=== PATIENT | female | born 1960 | race Caucasian/White ===

== ENCOUNTER → 2016-08-29 | Outpatient (CLI) | payer BC ==
[~2016-08-29] MED LIST: AMLO-110 PO; ASPEC81 PO; ATOR10TA82 PO; TRIA1SPR2 NAE
== END | disposition home or self-care (01) ==
LOC: C.PAPS 12:04
PROVIDERS: ATTEND Obstetrics & Gynecology
DX: Z01.419 Encounter for gynecological examination (general) (routine) without abnormal findings (principal); Z11.51 Encounter for screening for human papillomavirus (HPV)

== ENCOUNTER → 2016-12-12 | Outpatient (CLI) | payer BC ==
[~2016-12-12] MED LIST changes: -ATOR10TA82 PO; +ATOR10TA88 PO
--- NOTE | 2016-12-15 08:01 | MAMMOGRAPHY REPORT ---
BILATERAL DIGITAL SCREENING MAMMOGRAM TOMOSYNTHESIS WITH CAD: 12/12/2016 CLINICAL HISTORY: Routine screening. Patient has no complaints. TECHNIQUE: Breast tomosynthesis in addition to standard 2D mammography was performed. Current study was also evaluated with a Computer Aided Detection (CAD) system. COMPARISON: Comparison is made to exams dated: 10/19/2015 mammogram, 10/17/2014 mammogram, 09/23/2013 m ammogram, 09/22/2012 mammogram, 09/22/2011 mammogram, and 09/19/2010 mammogram - [facility] enter. BREAST COMPOSITION: The tissue of both breasts is heterogeneously dense, which may obscure small mas ses. FINDINGS: There are possible increasing grouped calcifications in the left lateral breast at approxi mately 3:00, for which spot magnification views are recommended for further evaluation. Another smal l cluster of calcifications is seen within the left upper outer quadrant more posteriorly which is li christy stable compared to prior exams although spot magnification views are recommended. The remainder of both breasts are stable compared to prior exams, without suspicious masses, calcific ations, or areas of architectural distortion noted. A biopsy marker clip is again noted in the right upper outer quadrant. IMPRESSION: ACR BI-RADS CATEGORY 0: INCOMPLETE EVALUATION: NEED ADDITIONAL IMAGING EVALUATION Left breast calcifications, for which additional imaging evaluation is recommended. patient will be called to schedule an appointment. Approximately 10% of breast cancers are not detected with mammography. A negative mammographic report should not delay biopsy if a clinically suggestive mass is present. Lita Vargas M.D. /:12/13/2016 11:05:52 Sales Order Coordinator: Zee Hong, [facility] letter sent: Addl Imaging 0 BI-RADS Code: ACR BI-RADS Category 0: Incomplete Evaluation: Need Additional Imaging Evaluation
== END | disposition home or self-care (01) ==
LOC: C.MAMM 16:17
PROVIDERS: ATTEND Family Medicine
DX: Z12.31 Encounter for screening mammogram for malignant neoplasm of breast (principal); R92.1 Mammographic calcification found on diagnostic imaging of breast

== ENCOUNTER → 2016-12-26 | Outpatient (CLI) | payer BC ==
[~2016-12-26] MED LIST changes: +ATOR10TA82 PO; -ATOR10TA88 PO
--- NOTE | 2016-12-26 15:52 | MAMMOGRAPHY REPORT ---
UNILATERAL LEFT DIGITAL DIAGNOSTIC MAMMOGRAM: 12/26/2016 CLINICAL HISTORY: Callback from screening mammogram for left breast calcifications. TECHNIQUE: Spot magnification left CC and ML views were obtained. COMPARISON: Comparison is made to exams dated: 12/12/2016 mammogram, 10/19/2015 mammogram, 09/23/2013 m ammogram, 09/22/2012 mammogram, 09/22/2011 mammogram, and 09/19/2010 mammogram - [facility] enter. BREAST COMPOSITION: The tissue of the left breast is heterogeneously dense, which may obscure small masses. FINDINGS: Spot magnification views of the left breast demonstrate at least 3 small (less than 5 mm) groups of faint punctate similar appearing calcifications in the left upper outer quadrant, left 3:00 breast, and left central breast. The calcifications are likely not significantly changed compared t o the 2015 exam and may been present on exams prior to 2015 although it is difficult to make an accur ate comparison due to technical differences. Given the probable stability, the calcifications are pr obably benign. Recommend follow-up diagnostic tomosynthesis mammograms of the left breast in 6 month s to confirm stability on spot magnification views. IMPRESSION: ACR-BI-RADS CATEGORY 3: PROBABLY BENIGN Three small groups of faint punctate calcifications in the left breast are likely stable compared to the 2015 exam and are probably benign. Recommend follow-up diagnostic mammograms of the left breast in 6 months to confirm stability on spot magnification views. The patient has been verbally notified of the results. Approximately 10% of breast cancers are not detected with mammography. A negative mammographic report should not delay biopsy if a clinically suggestive mass is present. Lita Vargas M.D. ah/:12/26/2016 14:25:10 Spiral Winding Machine Helper: Zee DICK(Long)(M), [facility] letter sent: Follow Up Recommended 3 BI-RADS Code: ACR-BI-RADS Category 3: Probably Benign
== END | disposition home or self-care (01) ==
LOC: C.MAMM 13:52
PROVIDERS: ATTEND Family Medicine
DX: R92.1 Mammographic calcification found on diagnostic imaging of breast (principal)